=== PATIENT | female | born 1985 | race Caucasian/White ===

== ENCOUNTER → 2021-10-31 | Emergency (ER) | payer OTHER ==
[~2021-10-31] VITALS: Ht 170.2 cm; Wt 140.6 kg
== END | disposition home or self-care (01) ==
LOC: ER 09:44
DX: N61.1 Abscess of the breast and nipple (principal)

== ENCOUNTER 2023-11-03 13:42 | Outpatient (CLI) | payer OTHER | END 2023-11-03 13:45 | disposition home or self-care (01) | LOC: PRENATAL 13:42 | PROVIDERS: ATTEND Obstetrics & Gynecology Maternal & Fetal Medicine | DX: O36.80X0 Pregnancy with inconclusive fetal viability, not applicable or unspecified (principal); Z36.82 Encounter for antenatal screening for nuchal translucency; O99.210 Obesity complicating pregnancy, unspecified trimester; Z3A.14 14 weeks gestation of pregnancy ==

== ENCOUNTER 2023-12-14 13:10 | Outpatient (CLI) | payer OTHER | END 2023-12-14 13:11 | disposition home or self-care (01) | LOC: PRENATAL 13:10 | PROVIDERS: ATTEND Obstetrics & Gynecology Maternal & Fetal Medicine | DX: O35.9XX0 Maternal care for (suspected) fetal abnormality and damage, unspecified, not applicable or unspecified (principal); O35.3XX0 Maternal care for (suspected) damage to fetus from viral disease in mother, not applicable or unspecified; O24.419 Gestational diabetes mellitus in pregnancy, unspecified control; O44.02 Complete placenta previa NOS or without hemorrhage, second trimester; O09.512 Supervision of elderly primigravida, second trimester; O99.212 Obesity complicating pregnancy, second trimester; O36.0920 Maternal care for other rhesus isoimmunization, second trimester, not applicable or unspecified; Z3A.20 20 weeks gestation of pregnancy ==

== ENCOUNTER 2024-01-14 16:07 | Outpatient (CLI) | payer OTHER ==
[2024-01-14 14:52] VITALS: BP 120/80
[2024-01-14] MEDS ORDERED: PRENATAL TABLE1 EAC1 PO (16:31)
[2024-01-14] MEDS ORDERED: CHILDREN'S ASPI81 MG PO (16:31)
[2024-01-14 19:02] VITALS: BP 122/80
== END 2024-01-14 19:00 | disposition home or self-care (01) ==
LOC: OBS/DEL 16:07 → LDR 18:20 → OBS/DEL 19:00
PROVIDERS: ATTEND Obstetrics & Gynecology
DX: O36.8120 Decreased fetal movements, second trimester, not applicable or unspecified (principal); Z3A.25 25 weeks gestation of pregnancy

== ENCOUNTER 2024-02-05 10:37 | Outpatient (CLI) | payer OTHER ==
[~2024-02-05 10:37] MED LIST: CHILDREN'S ASPI81 MG PO; PRENATAL TABLE1 EAC1 PO
== END 2024-02-05 10:38 | disposition home or self-care (01) ==
LOC: PRENATAL 10:37
PROVIDERS: ATTEND Obstetrics & Gynecology Maternal & Fetal Medicine
DX: O26.849 Uterine size-date discrepancy, unspecified trimester (principal); O09.519 Supervision of elderly primigravida, unspecified trimester; O99.210 Obesity complicating pregnancy, unspecified trimester; O24.419 Gestational diabetes mellitus in pregnancy, unspecified control; O36.1999 Maternal care for other isoimmunization, unspecified trimester, other fetus; Z3A.28 28 weeks gestation of pregnancy

== ENCOUNTER 2024-03-26 10:37 | Outpatient (CLI) | payer OTHER | END 2024-03-26 10:38 | disposition home or self-care (01) | LOC: PRENATAL 10:37 | PROVIDERS: ATTEND Obstetrics & Gynecology Maternal & Fetal Medicine | DX: O26.849 Uterine size-date discrepancy, unspecified trimester (principal); O36.8199 Decreased fetal movements, unspecified trimester, other fetus; O09.519 Supervision of elderly primigravida, unspecified trimester; O99.210 Obesity complicating pregnancy, unspecified trimester; O24.419 Gestational diabetes mellitus in pregnancy, unspecified control; O36.1999 Maternal care for other isoimmunization, unspecified trimester, other fetus; Z3A.35 35 weeks gestation of pregnancy ==

== ENCOUNTER 2024-04-12 09:45 | Inpatient (IN) | payer OTHER ==
[~2024-04-12] VITALS: Ht 170.2 cm; Wt 120.2 kg
[2024-04-27 15:45] VITALS: BP 121/74; O2SAT 100
[2024-04-27 16:35] VITALS: BP 121/74
[2024-04-27] MEDS ORDERED: RINGERS SOLUTION,LACTATED 1,000 ML IV SCH (17:15)
[2024-04-27 18:08] LABS: HEMATOCRIT 37.5 % (36.0-45.00); HEMOGLOBIN 12.8 g/dL (12.0-15.00); MEAN CELL VOLUME 82.4 fL (80.00-100.00); MEAN CORPUSCULAR HEMOGLOBIN 28.1 pg (27.00-32.0); MEAN CORPUSCULAR HGB CONC 34.1 g/dl (32.0-36.0); PLATELET COUNT 224 K/uL (150-450); RED BLOOD COUNT 4.55 M/uL (4.00-6.00); RED CELL DISTRIBUTION WIDTH 15.4 % (11.5-14.5)
[2024-04-27 18:51] LABS: PARTIAL THROMBOPLASTIN TIME 26.6 SECONDS (22.0-34.0); PROTHROMBIN TIME 10.9 SECONDS (9.0-11.5)
[2024-04-27 18:56] LABS: ALBUMIN 2.6 gm/dL (3.4-5.0); BILIRUBIN TOTAL 0.6 mg/dL (0.3-1.2); CALCIUM 9.1 mg/dL (8.5-10.1); CREATININE SERUM 0.59 mg/dL (0.55-1.02); GFR 113.47; POTASSIUM 4.2 mEq/L (3.5-5.1)
[2024-04-27 19:05] LABS: PH,URINE 6.5 (5.0-8.0); URINE APPEARANCE Clear; URINE BILIRRUBIN Negative (NEGATIVE); URINE BLOOD Moderate; URINE COLOR Yellow; URINE GLUCOSE Negative (NEGATIVE); URINE KETONE Negative (NEGATIVE); URINE LEUKOCYTE Negative; URINE NITRATE Negative; URINE PROTEIN Negative (NEGATIVE); URINE UROBILINOGEN 0.2 E.U./dl
[2024-04-27 19:06] LABS: URINE BACTERIA 401.4 uL (0.0-1933); URINE EPITHELIAL CELLS 12.1 uL (0.0-38.8); URINE WBC 3.6 uL (0.0-23.2)
[2024-04-27 19:16] LABS: GLOBULINA 3.7 G/DL (2.4-3.5); TOTAL PROTEIN 6.3 gm/dL (6.4-8.2)
[2024-04-27] MEDS ORDERED: CEFAZOLIN SODIUM 1,000 MG VIAL ONE (19:52)
[2024-04-27] MEDS ORDERED: CEFAZOLIN SODIUM 1,000 MG VIAL IV ONE (20:15)
[2024-04-27] MEDS ORDERED: OXYTOCIN 10 UNITS/ML VIAL IV ONE (20:15)
[2024-04-27] MEDS ORDERED: PROMETHAZINE HCL 50 MG/ML AMPUL IM PRN (21:00)
[2024-04-27] MEDS ORDERED: MEPERIDINE HCL/PF 50 MG/ML VIAL IM PRN (21:00)
[2024-04-27] MEDS ORDERED: MORPHINE SULFATE 4 MG/ML VIAL IV ONE (21:30)
[2024-04-28 01:25] VITALS: BP 120/77; O2SAT 97
[2024-04-28] MEDS ORDERED: CEFAZOLIN SODIUM 1,000 MG VIAL IV SCH (02:00)
[2024-04-28 07:56] LABS: HEMATOCRIT 33.5 % (36.0-45.00); HEMOGLOBIN 11.3 g/dL (12.0-15.00); MEAN CELL VOLUME 83.2 fL (80.00-100.00); MEAN CORPUSCULAR HEMOGLOBIN 28.1 pg (27.00-32.0); MEAN CORPUSCULAR HGB CONC 33.8 g/dl (32.0-36.0); PLATELET COUNT 236 K/uL (150-450); RED BLOOD COUNT 4.02 M/uL (4.00-6.00); RED CELL DISTRIBUTION WIDTH 15.2 % (11.5-14.5)
[2024-04-28 08:00] VITALS: BP 117/77; O2SAT 97
[2024-04-28] MEDS ORDERED: ACETAMINOPHEN 500 MG GEL..CAP PO PRN (10:30)
[2024-04-28] MEDS ORDERED: IBUprofen 800 MG TABLET PO PRN (10:30)
[2024-04-28] MEDS ORDERED: FF) RHO(D) IMMUNE GLOBULIN (POM) IM NR (11:00)
[2024-04-28 16:00] VITALS: BP 107/69; O2SAT 97
[2024-04-29] VITALS: BP 104/71; O2SAT 97
[2024-04-29 08:15] VITALS: BP 112/68; O2SAT 99
[2024-04-29] MEDS ORDERED: IBUPROFEN800 MG PO (08:33)
[2024-04-30] MEDS ORDERED: ERYTHROMYCIN BASE OPHT 1GM EACH TUBE OP ONE (11:15)
== END 2024-04-30 07:19 | disposition home or self-care (01) | DRG 786 ==
LOC: OB/GYN 04-27 09:45 → LDR 04-27 16:46 → OB/GYN 04-27 20:52 → SURH 04-27 21:18
PROVIDERS: Specialist; ADMIT Obstetrics & Gynecology; ATTEND Obstetrics & Gynecology
PROC: 4A1HXCZ Monitoring of Products of Conception, Cardiac Rate, External Approach (ICD-10-PCS; 2024-04-27)
PROC: BY4FZZZ Ultrasonography of Third Trimester, Single Fetus (ICD-10-PCS; 2024-04-27)
PROC: 10D00Z1 Extraction of Products of Conception, Low, Open Approach (ICD-10-PCS; principal; 2024-04-27 18:00)
DX: O36.4XX0 Maternal care for intrauterine death, not applicable or unspecified (principal); O41.1230 Chorioamnionitis, third trimester, not applicable or unspecified; Z3A.40 40 weeks gestation of pregnancy; Z37.1 Single stillbirth; Z20.822 Contact with and (suspected) exposure to COVID-19

== ENCOUNTER 2024-04-27 14:26 | Outpatient (CLI) | payer OTHER ==
[~2024-04-27] VITALS: Ht 170.2 cm; Wt 120.2 kg
[2024-04-27 14:04] VITALS: BP 133/73
[2024-04-27 14:20] VITALS: BP 133/73
[2024-04-27] MEDS ORDERED: RINGERS SOLUTION,LACTATED 1,000 ML IV SCH (14:45)
[2024-04-27 15:45] VITALS: BP 121/74
== END 2024-04-27 17:21 | disposition home or self-care (01) ==
LOC: OBS/DEL 14:26
PROVIDERS: ATTEND Obstetrics & Gynecology
DX: Z34.83 Encounter for supervision of other normal pregnancy, third trimester (principal)

== ENCOUNTER 2024-11-23 17:01 | Emergency (ER) | payer OTHER ==
[~2024-11-23] VITALS: Ht 170.2 cm; Wt 122.9 kg
[~2024-11-23 17:01] MED LIST changes: +IBUPROFEN800 MG PO
[2024-11-23] MEDS ORDERED: 0.9 % SODIUM CHLORIDE 1,000 ML IV STA (18:15)
[2024-11-23 18:46] LABS: BASO % 0.2 % (0.1-1.2); EOS # 0.06 (0.04-0.54); EOS % 0.4 % (0.7-7.0); LYMPH # 1.87 (1.18-3.74); LYMPH % 12.7 % (19.3-53.1); MEAN PLATELET VOLUME 11.30 fl (9.4-12.4); MONO # 0.72 (0.24-0.82); MONO % 4.9 % (4.7-12.5); NEUT # 12.03 (1.56-6.13); NEUT % 81.3 % (34.0-71.1); RED CELL DISTRIBUTION WIDTH 14.0 % (11.6-14.4)
[2024-11-23 19:38] LABS: INR 1.02
[2024-11-23 19:51] LABS: ALT/SGPT 19.0 U/L (12-78); AST/SGOT 16.0 U/L (15-37); BILIRUBIN TOTAL 0.34 mg/dL (0.3-1.2); BUN CREA RATIO 16.0 (7.0-25.0); CREATININE SERUM 0.63 mg/dL (0.55-1.02); GFR 104.66; GLOBULINA 4.6 G/DL (2.4-3.5); GLUCOSE FASTING 104.0 mg/dL (65-100); OSMOLALITY SERUM 275.0 MOSM/KG (275-295)
[2024-11-23 19:54] LABS: HCG QUANTITATIVE 82195.0 mUI/mL (1-3)
== END 2024-11-23 20:17 | disposition home or self-care (01) ==
LOC: ER 17:01
DX: O20.8 Other hemorrhage in early pregnancy (principal); Z3A.08 8 weeks gestation of pregnancy

== ENCOUNTER 2024-12-02 20:13 | Emergency (ER) | payer OTHER ==
[~2024-12-02] VITALS: Ht 170.2 cm; Wt 123.8 kg
[2024-12-02] MEDS ORDERED: METFORMIN HCL500 M3 (20:33)
[2024-12-02] MEDS ORDERED: ECOTRIN81 MG (20:34)
[2024-12-02] MEDS ORDERED: FOLIC ACID20 MG (20:34)
[2024-12-02 21:33] LABS: BASO % 0.3 % (0.1-1.2); EOS # 0.05 (0.04-0.54); EOS % 0.4 % (0.7-7.0); LYMPH # 2.18 (1.18-3.74); LYMPH % 17.1 % (19.3-53.1); MEAN PLATELET VOLUME 10.70 fl (9.4-12.4); MONO # 0.78 (0.24-0.82); MONO % 6.1 % (4.7-12.5); NEUT # 9.63 (1.56-6.13); NEUT % 75.7 % (34.0-71.1); RED CELL DISTRIBUTION WIDTH 13.8 % (11.6-14.4)
== END 2024-12-02 23:23 | disposition home or self-care (01) ==
LOC: ER 20:13
PROVIDERS: General Practice
DX: O20.9 Hemorrhage in early pregnancy, unspecified (principal); O24.111 Pre-existing type 2 diabetes mellitus, in pregnancy, first trimester; Z79.84 Long term (current) use of oral hypoglycemic drugs; Z3A.10 10 weeks gestation of pregnancy

== ENCOUNTER 2024-12-03 15:24 | Emergency (ER) | payer OTHER ==
[~2024-12-03] VITALS: Ht 170.2 cm; Wt 124.3 kg
[~2024-12-03 15:24] MED LIST changes: +ECOTRIN81 MG; +FOLIC ACID20 MG; +METFORMIN HCL500 M3
[2024-12-03] MEDS ORDERED: 0.9 % SODIUM CHLORIDE 1,000 ML IV STA (18:44)
[2024-12-03 19:00] LABS: BASO % 0.2 % (0.1-1.2); EOS # 0.02 (0.04-0.54); EOS % 0.2 % (0.7-7.0); LYMPH # 2.20 (1.18-3.74); LYMPH % 16.9 % (19.3-53.1); MEAN PLATELET VOLUME 10.70 fl (9.4-12.4); MONO # 0.56 (0.24-0.82); MONO % 4.3 % (4.7-12.5); NEUT # 10.18 (1.56-6.13); NEUT % 78.0 % (34.0-71.1); RED CELL DISTRIBUTION WIDTH 13.8 % (11.6-14.4)
[2024-12-03 19:34] LABS: INR 1.05
[2024-12-03 19:53] LABS: BUN CREA RATIO 10.0 (7.0-25.0); CREATININE SERUM 0.58 mg/dL (0.55-1.02); GFR 115.14; GLUCOSE FASTING 98.0 mg/dL (65-100); OSMOLALITY SERUM 275.0 MOSM/KG (275-295)
[2024-12-03 20:36] LABS: HCG QUANTITATIVE 72327.0 mUI/mL (1-3)
== END 2024-12-03 22:03 | disposition home or self-care (01) ==
LOC: ER 15:24
DX: O26.851 Spotting complicating pregnancy, first trimester (principal); Z3A.10 10 weeks gestation of pregnancy

== ENCOUNTER 2024-12-09 14:14 | Outpatient (CLI) | payer OTHER | END 2024-12-09 14:20 | disposition home or self-care (01) | LOC: PRENATAL 14:14 | PROVIDERS: ATTEND Obstetrics & Gynecology Maternal & Fetal Medicine | DX: Z76.1 Encounter for health supervision and care of foundling (principal) ==

== ENCOUNTER 2024-12-13 13:22 | Emergency (ER) | payer OTHER ==
[~2024-12-13] VITALS: Ht 170.2 cm; Wt 124.7 kg
[2024-12-13 14:07] LABS: BASO % 0.2 % (0.1-1.2); EOS # 0.05 (0.04-0.54); EOS % 0.4 % (0.7-7.0); LYMPH # 1.68 (1.18-3.74); LYMPH % 14.5 % (19.3-53.1); MEAN PLATELET VOLUME 10.80 fl (9.4-12.4); MONO # 0.61 (0.24-0.82); MONO % 5.3 % (4.7-12.5); NEUT # 9.17 (1.56-6.13); NEUT % 79.3 % (34.0-71.1); RED CELL DISTRIBUTION WIDTH 13.4 % (11.6-14.4)
== END 2024-12-13 15:45 | disposition home or self-care (01) ==
LOC: ER 13:22
PROVIDERS: General Practice
DX: O20.9 Hemorrhage in early pregnancy, unspecified (principal); O24.415 Gestational diabetes mellitus in pregnancy, controlled by oral hypoglycemic drugs; O43.891 Other placental disorders, first trimester; Z3A.11 11 weeks gestation of pregnancy

== ENCOUNTER 2024-12-22 11:37 | Emergency (ER) | payer OTHER ==
[~2024-12-22] VITALS: Ht 170.2 cm; Wt 122.9 kg
[2024-12-22] MEDS ORDERED: ENDOMETRIN100 MG VAG (11:48)
[2024-12-22 12:22] LABS: BASO % 0.2 % (0.1-1.2); EOS # 0.06 (0.04-0.54); EOS % 0.6 % (0.7-7.0); LYMPH # 1.39 (1.18-3.74); LYMPH % 13.3 % (19.3-53.1); MEAN PLATELET VOLUME 10.80 fl (9.4-12.4); MONO # 0.54 (0.24-0.82); MONO % 5.2 % (4.7-12.5); NEUT # 8.39 (1.56-6.13); NEUT % 80.2 % (34.0-71.1); RED CELL DISTRIBUTION WIDTH 13.7 % (11.6-14.4)
== END 2024-12-22 14:41 | disposition home or self-care (01) ==
LOC: ER 11:45
PROVIDERS: Emergency Medicine
DX: O20.9 Hemorrhage in early pregnancy, unspecified (principal); Z3A.13 13 weeks gestation of pregnancy

== ENCOUNTER 2025-01-06 19:43 | Emergency (ER) | payer OTHER ==
[~2025-01-06] VITALS: Ht 170.2 cm; Wt 122.9 kg
[~2025-01-06 19:43] MED LIST changes: +ENDOMETRIN100 MG VAG
[2025-01-06] MEDS ORDERED: PRENATAL + DHA1 EAC1 PO (19:56)
== END 2025-01-06 22:45 | disposition home or self-care (01) ==
LOC: ER 19:51
DX: O24.112 Pre-existing type 2 diabetes mellitus, in pregnancy, second trimester (principal); O26.892 Other specified pregnancy related conditions, second trimester; R10.2 Pelvic and perineal pain; Z3A.15 15 weeks gestation of pregnancy; Z79.84 Long term (current) use of oral hypoglycemic drugs

== ENCOUNTER 2025-01-08 13:34 | Outpatient (CLI) | payer OTHER ==
[~2025-01-08 13:34] MED LIST changes: +PRENATAL + DHA1 EAC1 PO
== END 2025-01-08 13:39 | disposition home or self-care (01) ==
LOC: PRENATAL 13:34
PROVIDERS: ATTEND Obstetrics & Gynecology Maternal & Fetal Medicine
DX: O26.849 Uterine size-date discrepancy, unspecified trimester (principal); O24.319 Unspecified pre-existing diabetes mellitus in pregnancy, unspecified trimester; Z3A.15 15 weeks gestation of pregnancy

== ENCOUNTER 2025-02-14 07:14 | Outpatient (CLI) | payer OTHER | END 2025-02-14 07:25 | disposition home or self-care (01) | LOC: PRENATAL 07:14 | PROVIDERS: ATTEND Obstetrics & Gynecology Maternal & Fetal Medicine | DX: O44.00 Complete placenta previa NOS or without hemorrhage, unspecified trimester (principal); O24.319 Unspecified pre-existing diabetes mellitus in pregnancy, unspecified trimester; O99.210 Obesity complicating pregnancy, unspecified trimester; Z3A.20 20 weeks gestation of pregnancy ==

== ENCOUNTER 2025-02-24 00:27 | Outpatient (CLI) | payer OTHER | END 2025-02-24 00:45 | disposition home or self-care (01) | LOC: NST 00:27 | PROVIDERS: ATTEND Specialist | DX: Z34.82 Encounter for supervision of other normal pregnancy, second trimester (principal) ==

== ENCOUNTER 2025-03-25 21:35 | Outpatient (CLI) | payer OTHER ==
[2025-03-25 20:55] VITALS: BP 121/77
[2025-03-25] MEDS ORDERED: RINGERS SOLUTION,LACTATED 1,000 ML IV SCH (22:00)
[2025-03-26 00:16] VITALS: BP 117/74
[2025-03-26 04:02] VITALS: BP 106/70
[2025-03-26 07:24] VITALS: BP 111/80; O2SAT 100
[2025-03-26 08:47] VITALS: BP 111/80
[2025-05-02] MEDS ORDERED: VITAMIN D-40010 MCG (02:55)
[2025-05-02] MEDS ORDERED: ROBITUSSIN COU237 M1 (02:57)
[2025-05-02] MEDS ORDERED: ZITHROMAX500 MG PO (07:40)
== END 2025-03-26 08:47 | disposition home or self-care (01) ==
LOC: OBS/DEL 21:35
PROVIDERS: ATTEND Specialist
DX: O36.8120 Decreased fetal movements, second trimester, not applicable or unspecified (principal); Z3A.26 26 weeks gestation of pregnancy

== ENCOUNTER 2025-03-31 12:52 | Outpatient (CLI) | payer OTHER ==
[2025-03-31 12:17] VITALS: BP 109/69
[2025-03-31 15:19] VITALS: BP 120/74; O2SAT 97
[2025-03-31 15:27] VITALS: BP 120/74
[2025-05-02] MEDS ORDERED: VITAMIN D-40010 MCG (02:55)
[2025-05-02] MEDS ORDERED: ROBITUSSIN COU237 M1 (02:57)
[2025-05-02] MEDS ORDERED: ZITHROMAX500 MG PO (07:40)
== END 2025-03-31 15:27 | disposition home or self-care (01) ==
LOC: OBS/DEL 12:52
PROVIDERS: ATTEND Specialist
DX: O26.842 Uterine size-date discrepancy, second trimester (principal); O36.8120 Decreased fetal movements, second trimester, not applicable or unspecified; O09.522 Supervision of elderly multigravida, second trimester; O24.312 Unspecified pre-existing diabetes mellitus in pregnancy, second trimester; O99.212 Obesity complicating pregnancy, second trimester; O36.1920 Maternal care for other isoimmunization, second trimester, not applicable or unspecified; Z3A.27 27 weeks gestation of pregnancy